=== PATIENT | male | born 1965 | race Caucasian/White ===

== ENCOUNTER → 2022-07-12 | Outpatient (REF) | payer BC | LOC: M SFHCDERM 17:17 | PROVIDERS: ATTEND Dermatology | DX: L57.0 Actinic keratosis (principal) ==

== ENCOUNTER 2025-07-14 07:41 | Inpatient (IN) | payer BC ==
[~2025-07-14] VITALS: Ht 175.3 cm; Wt 74.8 kg
[2025-07-14] VITALS (25 sets, daily range): BP systolic 107–159; BP diastolic 55–77; TEMP 98–98.4; O2SAT 96–100
[2025-07-14] MEDS ORDERED: ASPI325T57 PO (07:51)
[2025-07-14 08:34] LABS: BASO # 0.1 10^3/uL (0.0-0.2); BASO % 0.7 % (0.0-1.0); EOS # 0.2 10^3/uL (0.0-0.5); EOS % 2.0 % (0.0-3.0); LYMPH # 1.3 10^3/uL (1.5-5.0); LYMPH % 13.3 % (24.0-44.0); MONO # 0.8 10^3/uL (0.0-0.8); MONO % 8.4 % (2.0-8.0); NEUTROPHILS # 7.1 10^3/uL (1.5-8.5); NEUTROPHILS % 75.2 % (36.0-66.0); PLATELET COUNT, AUTOMATED 253 10^3/uL (150-450)
[2025-07-14 08:44] LABS: INR 0.94
[2025-07-14 08:56] LABS: CPK CREATINE PHOSPHOKINASE 98 U/L (46-171)
[2025-07-14 08:57] LABS: ALT/SGPT 15 U/L (7.0-40); AST/SGOT 17 U/L (<34); CALCIUM LEVEL 8.9 MG/DL (8.5-10.1); CARBON DIOXIDE LEVEL 27 MMOL/L (20-31); CHLORIDE LEVEL 108 MMOL/L (98-107); CK-MB VALUE MASS 1.8 NG/ML (<3.6); CREATININE FOR GFR 0.80 MG/DL (0.70-1.30); GLOMERULAR FILTRATION RATE > 90.0 (>56); MB/CK RELATIVE INDEX 1.83 (< OR =4); POTASSIUM SERUM 4.4 MMOL/L (3.5-5.1); SODIUM LEVEL 141 MMOL/L (136-145)
[2025-07-14 09:01] LABS: FREE T4 1.07 NG/DL (0.89-1.76)
[2025-07-14] MEDS ORDERED: ISOVUE-370 76% 100 ML VIAL As Ordered ONE (09:13)
[2025-07-14] MEDS ORDERED: BISACODYL 10 MG SUPP PR PRN (09:45)
[2025-07-14] MEDS ORDERED: ACETAMINOPHEN 325 MG TAB PO PRN (09:45)
[2025-07-14] MEDS ORDERED: PERCOCET 5MG/325MG TAB PO PRN ×2 (09:45)
[2025-07-14] MEDS ORDERED: ONDANSETRON 4MG 2ML VIAL IV PRN (09:45)
[2025-07-14] MEDS ORDERED: LEVALBUTEROL 1.25 MG 0.5ML CONCENTRATE NEB NEB PRN (09:45)
[2025-07-14] MEDS ORDERED: MIDAZOLAM INJ 2 MG/2 ML VIAL IV STA (10:06)
[2025-07-14] MEDS: D5W/0.9% SODIUM CHLORIDE 1,000 ML IV SCH (10:08)
[2025-07-14 10:34] LABS: CK-MB VALUE MASS 1.4 NG/ML (<3.6)
[2025-07-14 10:35] LABS: CPK CREATINE PHOSPHOKINASE 77.0 U/L (46-171); MB/CK RELATIVE INDEX 1.81 (< OR =4)
[2025-07-14] MEDS: FLUMAZENIL 0.5 MG/5 ML VIAL IV STA (11:19)
[2025-07-14] MEDS: MIDAZOLAM INJ 2 MG/2 ML VIAL IV STA ×3 (11:19→11:25)
[2025-07-14] MEDS: LIDOCAINE 1% MDV 20 ML VIAL SC STA (11:19)
[2025-07-14] MEDS ORDERED: HOME MED LIST COMPLETE! XX SCH (11:45)
[2025-07-14] MEDS: KETOROLAC 30 MG/ML 1 ML VIAL IV SCH (13:20)
[2025-07-14] MEDS: PANTOPRAZOLE 40MG TAB PO SCH (15:58)
[2025-07-14] MEDS: DOCUSATE SODIUM 100 MG CAPSULE PO SCH (20:24)
[2025-07-14] MEDS: HEPARIN SOD 5000 UNITS/ML 1 ML VIAL/SYRINGE SQ SCH (21:01)
[2025-07-15] VITALS (9 sets, daily range): BP systolic 109–138; BP diastolic 60–62; TEMP 97.1–98.4; O2SAT 95–97
[2025-07-15 04:34] LABS: BASO # 0.0 10^3/uL (0.0-0.2); BASO % 0.5 % (0.0-1.0); EOS # 0.3 10^3/uL (0.0-0.5); EOS % 4.0 % (0.0-3.0); LYMPH # 1.6 10^3/uL (1.5-5.0); LYMPH % 21.1 % (24.0-44.0); MONO # 0.7 10^3/uL (0.0-0.8); MONO % 8.9 % (2.0-8.0); NEUTROPHILS # 4.8 10^3/uL (1.5-8.5); NEUTROPHILS % 65.1 % (36.0-66.0); PLATELET COUNT, AUTOMATED 223 10^3/uL (150-450)
[2025-07-15 04:56] LABS: CALCIUM LEVEL 8.1 MG/DL (8.5-10.1); CARBON DIOXIDE LEVEL 27 MMOL/L (20-31); CHLORIDE LEVEL 109 MMOL/L (98-107); CREATININE FOR GFR 0.90 MG/DL (0.70-1.30); GLOMERULAR FILTRATION RATE > 90.0 (>56); POTASSIUM SERUM 4.3 MMOL/L (3.5-5.1); SODIUM LEVEL 143 MMOL/L (136-145)
[2025-07-15] MEDS: MOM 30 ML SUSPENSION UDC PO SCH (08:50)
[2025-07-15] MEDS: NICOTINE 21 MG/24 HR 1 EA TRANSDERMAL TD SCH (08:51)
[2025-07-16] VITALS (8 sets, daily range): BP systolic 117–145; BP diastolic 58–82; TEMP 97–98.7; O2SAT 96–99
[2025-07-16 04:44] LABS: BASO # 0.1 10^3/uL (0.0-0.2); BASO % 0.7 % (0.0-1.0); EOS # 0.3 10^3/uL (0.0-0.5); EOS % 4.3 % (0.0-3.0); LYMPH # 1.9 10^3/uL (1.5-5.0); LYMPH % 26.8 % (24.0-44.0); MONO # 0.6 10^3/uL (0.0-0.8); MONO % 8.2 % (2.0-8.0); NEUTROPHILS # 4.1 10^3/uL (1.5-8.5); NEUTROPHILS % 59.6 % (36.0-66.0); PLATELET COUNT, AUTOMATED 212 10^3/uL (150-450)
[2025-07-16 05:01] LABS: CALCIUM LEVEL 8.0 MG/DL (8.5-10.1); CARBON DIOXIDE LEVEL 26 MMOL/L (20-31); CHLORIDE LEVEL 113 MMOL/L (98-107); CREATININE FOR GFR 0.89 MG/DL (0.70-1.30); GLOMERULAR FILTRATION RATE > 90.0 (>56); POTASSIUM SERUM 4.6 MMOL/L (3.5-5.1); SODIUM LEVEL 145 MMOL/L (136-145)
[2025-07-17 03:52] VITALS: BP 119/63; TEMP 97.4; O2SAT 98
[2025-07-17 05:28] LABS: BASO # 0.1 10^3/uL (0.0-0.2); BASO % 0.7 % (0.0-1.0); EOS # 0.4 10^3/uL (0.0-0.5); EOS % 5.5 % (0.0-3.0); LYMPH # 1.5 10^3/uL (1.5-5.0); LYMPH % 21.0 % (24.0-44.0); MONO # 0.6 10^3/uL (0.0-0.8); MONO % 9.3 % (2.0-8.0); NEUTROPHILS # 4.4 10^3/uL (1.5-8.5); NEUTROPHILS % 63.2 % (36.0-66.0); PLATELET COUNT, AUTOMATED 204 10^3/uL (150-450)
[2025-07-17 06:02] LABS: CALCIUM LEVEL 8.4 MG/DL (8.5-10.1); CARBON DIOXIDE LEVEL 28 MMOL/L (20-31); CHLORIDE LEVEL 107 MMOL/L (98-107); CREATININE FOR GFR 0.93 MG/DL (0.70-1.30); GLOMERULAR FILTRATION RATE > 90.0 (>56); POTASSIUM SERUM 4.7 MMOL/L (3.5-5.1); SODIUM LEVEL 143 MMOL/L (136-145)
[2025-07-17 07:00] VITALS: O2SAT 97
[2025-07-17 08:00] VITALS: BP 125/68; TEMP 98.2; O2SAT 100; O2SAT 98
[2025-07-17 09:00] VITALS: O2SAT 98
== END 2025-07-17 13:32 | disposition home or self-care (01) | DRG 201 ==
LOC: M ED 07:41 → M ED INP 09:45 → M ICU 10:23 → M PCU 07-16 12:50
PROVIDERS: ADMIT Internal Medicine; ATTEND Student in an Organized Health Care Education/Training Program
PROC: 0W993ZZ Drainage of Right Pleural Cavity, Percutaneous Approach (ICD-10-PCS; principal; 2025-07-14)
DX: J93.83 Other pneumothorax (principal); F17.200 Nicotine dependence, unspecified, uncomplicated; J43.9 Emphysema, unspecified; Z91.199 Patient's noncompliance with other medical treatment and regimen due to unspecified reason

== ENCOUNTER → 2025-08-09 | Outpatient (CLI) | payer BC ==
[~2025-08-09] MED LIST: ASPI325T57 PO
== END ==
LOC: M RAD 09:01
PROVIDERS: ATTEND Internal Medicine Pulmonary Disease
DX: J43.9 Emphysema, unspecified (principal)

== ENCOUNTER → 2025-08-23 | Outpatient (REF) | payer BC ==
[2025-08-23 17:26] LABS: CHOLESTEROL LEVEL 187.0 MG/DL (<200); CHOLESTEROL RISK RATIO 4.07 (<5); LDL CHOLESTEROL 118.3 MG/DL (<100); NON-HDL-C 141.1 MG/DL; TRIGLYCERIDES LEVEL 114.0 MG/DL (<150)
== END ==
LOC: M LAB REF 16:23
PROVIDERS: ATTEND Student in an Organized Health Care Education/Training Program
DX: F17.201 Nicotine dependence, unspecified, in remission (principal)